=== PATIENT | female | born 1985 | race Caucasian/White ===

== ENCOUNTER → 2016-12-25 | Outpatient (CLI) | payer BC, OTHER ==
[~2016-12-25] MED LIST: B-COTAB18 PO; BUPR100T8 PO; CETI10TA84 PO; CHOL20009 PO; HYDR25TA4 PO; LEVO25TA PO; OMEP40CA41 PO; OXYC1TAB3 PO
== END | disposition home or self-care (01) ==
LOC: C.RDSM 13:21
PROVIDERS: ATTEND Orthopaedic Surgery Sports Medicine
DX: M25.531 Pain in right wrist (principal); M25.532 Pain in left wrist

== ENCOUNTER → 2017-04-16 | Day surgery (SDC) | payer OTHER, BC ==
[2017-04-08 08:31] VITALS: Ht 162.6 cm; Wt 71.4 kg
[~2017-04-16] VITALS: Ht 162.6 cm; Wt 71.4 kg
[~2017-04-16] MED LIST changes: +ATROPINE SULFATE 0.1 MG/ML 5ML SYR IV PRN; +BUPIVACAINE/EPINEPHRINE 0.5% MPF 1:200,000 30 ML VIAL ONE; +CEFAZOLIN 1000MG/55 ML D5W IV SCH; +DEXAMETHASONE SOD INJ 4 MG/ML VIAL ONE; +EpHEDrine SULFATE INJ 50 MG/ML AMP IV PRN; +FENTANYL CITRATE INJ 50 MCG/1 ML 2 ML VIAL IV PRN; +FENTANYL CITRATE INJ 50 MCG/1 ML 2 ML VIAL ONE; +FLUMAZENIL 0.1 MG/1 ML 10 ML VIAL IV PRN; +HYDROmorphone INJ 2 MG/ML SYR/VIAL IV PRN; +LABETALOL HCL IV 5 MG/ML 20ML IV PRN; +LACTATED RINGER'S 1000ML 1,000 ML IV SCH; +LIDOCAINE HCL 1% 20 ML VIAL ONE; +LIDOCAINE HCL 2% 2 ML VIAL (20MG/ML) ONE; +MEPERIDINE HCL 25 MG/ML CARP IV PRN; +MIDAZOLAM HCL 1 MG/ML 2ML VIAL ONE; +MoRPHine SULFATE 2 MG/ML CARP IV PRN; +MoRPHine SULFATE 4 MG/ML 1 ML CARP\\VIAL IV PRN; +NALOXONE HCL 0.4 MG/1 ML VIAL/CARP IV PRN; +ONDANSETRON INJ 2 MG/ML 2 ML VIAL IV PRN; +ONDANSETRON INJ 2 MG/ML 2 ML VIAL ONE; -OXYC1TAB3 PO; +OXYCODONE/ACETAMINOPHEN 5-325 TAB PO PRN; +PHENYLEPHRINE 100MCG/ML 5ML SYR IV PRN; +PROPOFOL IV EMULSION 10 MG/ML 20 ML VIAL IV ONE
--- NOTE | 2017-04-16 08:04 | History & Physical Bridge - [place] ---
H&P Re-Evaluation Bridge Note: I have examined the patient, reviewed the History & Physical and in the interval since the performance of the History & Physical I have noted the following changes of clinical significance: No changes noted
--- NOTE | 2017-04-16 11:02 | Discharge Instructions-SurgCtr ---
Discharge Instructions Date of Service Apr 16, 2017. Visit Reason for Visit: Right Ulnar Nerve Subluxation Discharge Discharge Diagnosis / Problem: Status post Right Ulnar Nerve Transposition Discharge Goals Goal(s): Decrease discomfort, Improve function, Increase independence Activity Recommendations Activity Limitations: per Instructions/Follow-up section Lifting Limitations: until after follow-up appointment (Nothing more than cup of coffee) May Resume Sexual Activity: when tolerated Shower/Bathe: may shower/bathe in 3 days Driving or Machine Use: Not while on narcotics or while wearing sling Anesthesia . Post Anesthesia Instructions: If you have had General Anesthesia or IV Sedation: * Do not drive today. * Resume driving when surgeon permits. * Do not make important decisions or sign legal documents today. * Call surgeon for: 1. Temperature elevations greater than 101 degrees F. 2. Uncontrollable pain. 3. Excessive bleeding. 4. Persistent nausea and vomiting. 5. Medication intolerance (nausea, vomiting or rash). * For nausea and vomiting use only clear liquids such as: tea, soda, bouillon until nausea subsides, then gradually increase diet as tolerated. * If you have any concerns or questions, call your surgeon's office. If physician is unavailable and it is an emergency, call 911 or go to the nearest emergency room. . Instructions / Follow-Up Instructions / Follow-Up Dr. Coreas in 10-15 days. PT in 3 days. Diet Recommendations Home Diet: resume previous diet Procedures Procedures Performed: Right Ulnar Nerve Transposition Pending Studies Studies pending at discharge: no Work Instructions Return To Work: 1 week (Within) Medical Emergencies . Who to Call and When: Medical Emergencies: If at any time you feel your situation is an emergency, please call 911 immediately. . Non-Emergent Contact Non-Emergency issues call your: Surgeon Call Non-Emergent contact if: temperature is above 101.5, your pain is not controlled, wound has increased drainage, wound has increased redness . . "Provider Documentation" section prepared by Prasanna Coreas. .
--- NOTE | 2017-04-16 11:03 | [facility] Post Operative Brief Note ---
Immediate Operative Summary Operative Date Apr 16, 2017. Pre-Operative Diagnosis Right Ulnar Nerve Subluxation Post-Operative Diagnosis Same Procedure(s) Performed Right Ulnar Nerve Transposition Surgeon Dr. Jose Coreas Program Strategist Surgeon(s) Dr. Reggie Valdovinos & Florentin Mejia PA-C Estimated Blood Loss 15 cc Findings As above Fluids (cc crystalloids) 1000 Specimens None Drains n/a Anesthesia LMA Complication(s) None Disposition Recovery Room / PACU (Stable)
--- NOTE | 2017-04-16 11:04 | [facility] Operative Report ---
Operative Report Operative Date Apr 16, 2017. Pre-Operative Diagnosis Right Ulnar Nerve Subluxation Post-Operative Diagnosis Same Procedure(s) Performed Right Ulnar Nerve Transposition Surgeon Dr. Jose Coreas Rug Dyer Surgeon(s) Dr. Reggie Valdovinos & Florentin Mejia PA-C Estimated Blood Loss 15 cc Findings Right Ulnar Nerve was scarred in but subluxed over the medial epicondyle. Fluids (cc crystalloids) 1000 Specimens None Drains n/a Anesthesia LMA Complication(s) None Disposition Recovery Room / PACU Implants n/a Indications The patient is a 32 year old female with long standing right ulnar nerve symptoms, with subluxation of the nerve, that has failed conservative treatment. The patient understands the risks of surgery, which include but are not limited to: bleeding, infection, re-operation, damage to nerves and arteries , continued pain and DVT. The patient understands all of these instructions and explanations, all of their questions have been satisfactorily addressed. The patient has elected to proceed with surgery and the informed consent was signed. Description of Procedure The patient was taken to the Operating Room and placed in the supine position on the operating table. After general anesthetic was administered a multidisciplinary time-out was performed identifying my initials on the right upper limb as the correct and operative limb. Prior to the incision being made , 1 gram of intravenous Ancef was given. The right arm was prepped and draped in the standard orthopaedic sterile fashion. The planned incision and the patients medial epicondyle were marked. The incision was injected with a 50:50 mixture of 1% Lidocaine plain and 0.5% Marcaine for a total of 10 cc. The limb was exsanguinated with an Esmarch and a tourniquet was inflated to 250 mmHg. The incision was carried down to the fascia. The medial antebrachial cutaneous nerve and its branches near the medial epicondyles were identified and protected throughout the case. The ulnar nerve was palpated in the cubital tunnel, it was initially exposed proximally and carefully dissected free distally , preserving any motor branches off the ulnar nerve. There was scarring in the cubital tunnel. A small portion of the intermuscular septum was excised. The Ulnar nerve was sufficiently freed to allow anterior transposition and a draw bridge type flap was created and the flaps were closed over the transposed nerve with 2-0 Vicryl. There was no tension on the nerve with full range of motion of the elbow. The wound was copiously irrigated. The cubital tunnel was closed with 2-0 Vicryl. The subcutaneous layer was closed with 3-0 Vicryl. The skin was closed with 4-0 Monocryl in a running subcuticular fashion and covered with Dermabond. Once the Dermabond had dried, the incision was covered with Steri strips, 4x4's, ABD, sterile cast padding , and an JORGE LUIS. A sling was placed for comfort. The sponge and needle counts were correct. POST-OP INSTRUCTIONS: Pain medicine prescription was given pre-operatively to be taken as needed. Sling for comfort. No heavy lifting. The patient will follow up with me in 10- 15 days. in the recovery room, her motor to her median, radial, ulnar, AIN, PIN were intact. She had normal sensation of all her digits and brisk cap refill. I attest to the content of the Intraoperative Record and any orders documented therein. Any exceptions are noted below.
--- NOTE | 2017-04-16 11:53 | [facility] Operative Report ---
Operative Report Operative Date Apr 16, 2017. Pre-Operative Diagnosis Right Ulnar Nerve Subluxation Post-Operative Diagnosis Same Procedure(s) Performed Right Ulnar Nerve Transposition Surgeon Dr. Jose Coreas Title Camera Operator Surgeon(s) Dr. Reggie Valdovinos & Florentin Mejia PA-C Estimated Blood Loss 15 cc Findings same Fluids (cc crystalloids) 1000 Specimens None Drains none Anesthesia general Complication(s) None Disposition Recovery Room / PACU Implants none Indications continued right upper extremity numbness, EMG performed, surgery recommended, consents signed. Description of Procedure taken to the OR, prepped and draped, I was present the entire case, please see Dr. Coreas's op note for further detail. I attest to the content of the Intraoperative Record and any orders documented therein. Any exceptions are noted below.
--- NOTE | 2017-04-16 12:46 | Anesthesia Progress Nt - [facility] ---
Anesthesia Post Op Note Date & Time Apr 16, 2017 at 12:45 Vital Signs Pain Intensity: 0 Vital Signs Past 12 Hours Date Time Temp Pulse Resp B/P (MAP) Pulse Ox O2 Delivery O2 Flow Rate FiO2 04/16/17 12:36 86 16 98 04/16/17 12:36 87 16 04/16/17 12:35 117/79 04/16/17 12:33 36.9 82 14 117/79 99 Room Air 04/16/17 12:31 95 21 04/16/17 12:31 95 21 94 04/16/17 12:30 112/77 04/16/17 12:26 86 19 04/16/17 12:26 86 19 98 04/16/17 12:25 119/72 04/16/17 12:21 85 19 04/16/17 12:21 85 19 97 04/16/17 12:20 109/72 04/16/17 12:16 84 19 04/16/17 12:16 85 19 97 04/16/17 12:15 107/76 04/16/17 12:11 88 16 98 04/16/17 12:11 88 16 04/16/17 12:10 110/67 04/16/17 12:06 99 19 97 04/16/17 12:06 101 19 04/16/17 12:05 110/69 04/16/17 12:01 95 16 100 04/16/17 12:01 95 16 04/16/17 12:00 110/70 04/16/17 11:56 88 16 99 04/16/17 11:56 88 16 04/16/17 11:55 119/61 04/16/17 11:51 102 13 04/16/17 11:51 103 13 97/67 97 04/16/17 11:46 91 20 04/16/17 11:46 90 20 98 04/16/17 11:45 111/68 04/16/17 11:42 80/51 04/16/17 11:42 102/74 04/16/17 11:41 36.4 105 20 102/74 97 Mask 6 04/16/17 11:41 104 04/16/17 11:41 104 100 04/16/17 07:20 37 91 16 136/88 (104) 100 Room Air Notes Mental Status: alert / awake / arousable, participated in evaluation Pt Amnestic to Procedure: Yes Nausea / Vomiting: adequately controlled Pain: adequately controlled Airway Patency, RR, SpO2: stable & adequate BP & HR: stable & adequate Hydration State: stable & adequate Anesthetic Complications: no major complications apparent
[2017-04-16 12:52] VITALS: TEMP 37.2
[2017-04-16 13:20] VITALS: BP 115/78; PULSE 84; O2SAT 99
== END | disposition home or self-care (01) ==
LOC: X.SURG 06:55
PROVIDERS: ATTEND Orthopaedic Surgery Sports Medicine
DX: S53.131A Medial subluxation of right ulnohumeral joint, initial encounter (principal); R20.2 Paresthesia of skin; Z90.710 Acquired absence of both cervix and uterus; Z90.89 Acquired absence of other organs; K21.9 Gastro-esophageal reflux disease without esophagitis; Z82.49 Family history of ischemic heart disease and other diseases of the circulatory system; Z80.6 Family history of leukemia; Z87.891 Personal history of nicotine dependence; X58.XXXA Exposure to other specified factors, initial encounter; I10 Essential (primary) hypertension; E03.9 Hypothyroidism, unspecified; F41.9 Anxiety disorder, unspecified; F32.9 Major depressive disorder, single episode, unspecified; G25.0 Essential tremor

== ENCOUNTER 2017-06-27 00:13 | Emergency (ER) | payer BC, OTHER ==
[~2017-06-27] VITALS: Ht 162.6 cm; Wt 75.0 kg
[~2017-06-27 00:13] MED LIST changes: -ATROPINE SULFATE 0.1 MG/ML 5ML SYR IV PRN; -BUPIVACAINE/EPINEPHRINE 0.5% MPF 1:200,000 30 ML VIAL ONE; -CEFAZOLIN 1000MG/55 ML D5W IV SCH; -DEXAMETHASONE SOD INJ 4 MG/ML VIAL ONE; -EpHEDrine SULFATE INJ 50 MG/ML AMP IV PRN; -FENTANYL CITRATE INJ 50 MCG/1 ML 2 ML VIAL IV PRN; -FENTANYL CITRATE INJ 50 MCG/1 ML 2 ML VIAL ONE; -FLUMAZENIL 0.1 MG/1 ML 10 ML VIAL IV PRN; -HYDROmorphone INJ 2 MG/ML SYR/VIAL IV PRN; -LABETALOL HCL IV 5 MG/ML 20ML IV PRN; -LACTATED RINGER'S 1000ML 1,000 ML IV SCH; -LIDOCAINE HCL 1% 20 ML VIAL ONE; -LIDOCAINE HCL 2% 2 ML VIAL (20MG/ML) ONE; -MEPERIDINE HCL 25 MG/ML CARP IV PRN; -MIDAZOLAM HCL 1 MG/ML 2ML VIAL ONE; -MoRPHine SULFATE 2 MG/ML CARP IV PRN; -MoRPHine SULFATE 4 MG/ML 1 ML CARP\\VIAL IV PRN; -NALOXONE HCL 0.4 MG/1 ML VIAL/CARP IV PRN; -ONDANSETRON INJ 2 MG/ML 2 ML VIAL IV PRN; -ONDANSETRON INJ 2 MG/ML 2 ML VIAL ONE; -OXYCODONE/ACETAMINOPHEN 5-325 TAB PO PRN; -PHENYLEPHRINE 100MCG/ML 5ML SYR IV PRN; -PROPOFOL IV EMULSION 10 MG/ML 20 ML VIAL IV ONE
[2017-06-27 00:25] VITALS: TEMP 36.7; Ht 162.6 cm; Wt 75.0 kg
[2017-06-27] MEDS ORDERED: IBUPROFEN 200 MG TAB PO STA (00:37)
--- NOTE | 2017-06-27 00:40 | EMERGENCY ROOM VISIT NOTE ---
History Report prepared by Harshibkaleb: Rosalia Prajapati Under the Supervision of: Dr. Srinath Camacho M.D. First contact with patient: 00:28 Chief Complaint: FINGER PAIN Stated Complaint: POSSIBLE BROKEN FINGER History of Present Illness The patient is a 32 year old female who presents to the Emergency Room with complaints of an episode of a finger injury occurring 2 hours ago. The patient states her left middle finger got caught on her dogs collar and pulled her finger backward. She states that her finger feels stiff. She denies any other injury. The patient has a history of a hysterectomy. Source of History: patient Onset: 2 hours ago Position: finger(s) Quality: other (injury) Timing: other (episode) Modifying Factors (Relieving): other (none) Review of Systems See HPI for pertinent positives & negatives. A total of 6 systems reviewed and were otherwise negative. Past Medical & Surgical Surgical Problems: (1) H/O: hysterectomy Old medical records were reviewed. Nurse's notes were reviewed and I agree with. Family History Patient reports no known family medical history. Social History Smoking Status: Current Every Day Smoker Marital Status: Housing Status: lives with significant other Current/Historical Medications Scheduled Bupropion (Wellbutrin Sr), 100 MG PO QAM Cetirizine (Zyrtec), 10 MG PO QAM Hydrochlorothiazide (Hctz), 25 MG PO QAM Levothyroxine Sodium (Synthroid), 25 MCG PO QAM Omeprazole (Prilosec), 40 MG PO BID Scheduled PRN Oxycodone Immediate Rel Tab (Roxicodone Ir), 1 TAB PO Q4H PRN for Severe Pain Allergies Coded Allergies: No Known Allergies (Unverified , 06/27/17) Physical Exam Vital Signs Date Time Temp Pulse Resp B/P (MAP) Pulse Ox O2 Delivery O2 Flow Rate FiO2 06/27/17 00:25 36.7 79 18 136/83 100 Room Air Physical Exam General: Non-ill appearing female in no acute distress. HEENT: Normal cephalic atraumatic. Pupils are equal round and reactive to light. Extraocular movements are intact. Oropharynx is pink with moist mucous membranes. No swelling of the mouth lips or tongue. Neck: Supple with a midline trachea. No meningeal signs or stiffness, no JVD or bruits. No Stridor. Chest: Clear to auscultation bilaterally. No wheezes or rhonchi. No increased work of breathing. Heart: regular rate and rhythm. Abdomen: Soft nontender, nondistended without rebound guarding or rigidity. Extremities: Bruise and tenderness on left middle fingertip, pain with flexion and extension and mild weakness in both directions, finger appears in normal position. Spine/Back. Non tender to palpation. No CVA tenderness Skin: Good turgor without rashes. Neurologic exam: Cranial nerves two through 12 are intact. Motor and sensation are intact and symmetrical throughout.young Medical Decision & Procedures ER Provider Diagnostic Interpretation: Radiology results as stated below per my review and radiologist interpretation: Two View Finger X-ray: Fracture of distal phalanx above the joint, suspect for underlying bony abnormality/cyst Medications Administered Medications (Trade) Dose Ordered Sig/Fuentes Route Start Time Stop Time Status Last Admin Dose Admin Ibuprofen (Advil Tab) 400 mg NOW STAT PO 06/27/17 00:37 06/27/17 00:39 DC 06/27/17 00:47 400 MG ED Course 0029: Past medical records reviewed. The patient was evaluated in room C3, and a complete history and physical examination were performed. 0037: Ordered Ibuprofen 400 mg PO. 0058: I updated the patient on her x-ray results. Medical Decision Differential diagnoses: fracture, tendon injury, contusion. This patient comes in as described above. She injured her left middle finger at the tip is bruised and swollen. There is no definite neurologic deficit. She seems weak in both flexion and extension. There is nothing that appears to be displaced. There is no nailbed injury and the nail is intact. X-rays do show a transverse fracture at the mid distal phalanx with minimal displacement. It looks like there is underlying bony abnormalities likely a cyst and I think this is therefore somewhat of a pathological fracture. I have splinted her in a neutral finger splint. She is to rest, ice, and elevate. Use ibuprofen for pain . For breakthrough pain she can use OxyIR and was given a small prescription she was warned that this could make her drowsy do not take before drinking, driving, working. She is encouraged to follow with Dr. Coreas this week for recheck and further evaluation and to rule out further injuries such as tendon injury. She was happy with the plan and discharged home. [place] Drug Monitoring Program Search Results: patient reviewed within database, no issues identified Blood Pressure Screening Patient's blood pressure: Elevated blood pressure Blood pressure disposition: Elevated BP felt to be situational Impression Primary Impression: Finger fracture, left Additional Impression: Pathological fracture Scribe Attestation The scribe's documentation has been prepared under my direction and personally reviewed by me in its entirety. I confirm that the note above accurately reflects all work, treatment, procedures, and medical decision making performed by me. Departure Information Dispostion Home / Self-Care Prescriptions Oxycodone Immediate Rel Tab (ROXICODONE IR) 5 Mg Tab 1 TAB PO Q4H Y for Severe Pain, #10 TAB Prov: Srinath Camacho M.D. 06/27/17 Referrals Cande Anderson (PCP) Forms HOME CARE DOCUMENTATION FORM, IMPORTANT VISIT INFORMATION, WORK / SCHOOL INSTRUCTIONS Patient Instructions My [facility] Additional Instructions Rest. Ice intermittently. Use neutral finger splint Use ibuprofen 400 mg every 6 hours, take with food. For more severe pain may use OxyIR 5 mg, one pill every 4-6 hours as needed OxyIR may make you drowsy do not take before drinking, driving, working Return if: Increasing pain, worsening symptoms, numbness weakness, any new problems or concerns Follow up with Dr. Coreas this week for recheck Problem Qualifiers
[2017-06-27] MEDS ORDERED: OXYC1TAB3 PO (01:08)
[2017-06-27] MEDS ORDERED: OXYCODONE IR HOME PACK PO ONE (01:15)
[2017-06-27 01:23] VITALS: BP 138/93; PULSE 75; O2SAT 100
--- NOTE | 2017-06-27 08:05 | DIAGNOSTIC IMAGING REPORT ---
LEFT MIDDLE FINGER 3 VIEWS HISTORY: left middle finger distal injury COMPARISON: None. FINDINGS: Transverse fracture through the mid aspect of the distal phalanx of the middle finger. There is associated 5 mm lucency at this location consistent with an enchondroma. Therefore, this is consistent with a pathologic fracture. Soft tissue swelling within the distal middle finger. No dislocation. No radiopaque foreign bodies. IMPRESSION: Transverse pathologic nondisplaced fracture within the distal phalanx as described above. Electronically signed by: Wei Richards M.D. 06/27/2017 8:04 AM Dictated Date/Time: 06/27/2017 8:03 AM
== END 2017-06-27 01:23 | disposition home or self-care (01) ==
LOC: C.EDB 00:14 → C.EDC 01:23
DX: S62.633A Displaced fracture of distal phalanx of left middle finger, initial encounter for closed fracture (principal); W23.0XXA Caught, crushed, jammed, or pinched between moving objects, initial encounter; F17.200 Nicotine dependence, unspecified, uncomplicated; Z90.710 Acquired absence of both cervix and uterus

== ENCOUNTER → 2017-07-14 | Outpatient (CLI) | payer BC ==
[~2017-07-14] MED LIST changes: -B-COTAB18 PO; -CHOL20009 PO; +OXYC1TAB3 PO
== END | disposition home or self-care (01) ==
LOC: C.RDSM 12:35
PROVIDERS: ATTEND Orthopaedic Surgery Sports Medicine
DX: Z09 Encounter for follow-up examination after completed treatment for conditions other than malignant neoplasm (principal)

== ENCOUNTER → 2017-07-28 | Outpatient (CLI) | payer BC ==
[~2017-07-28] MED LIST changes: +OXYC-737 PO; -OXYC1TAB3 PO
== END | disposition home or self-care (01) ==
LOC: C.RDSM 15:45
PROVIDERS: ATTEND Orthopaedic Surgery Sports Medicine
DX: Z09 Encounter for follow-up examination after completed treatment for conditions other than malignant neoplasm (principal); M79.645 Pain in left finger(s)

== ENCOUNTER → 2017-08-19 | Outpatient (CLI) | payer BC ==
[~2017-08-19] MED LIST changes: -OXYC-737 PO; +OXYC1TAB3 PO
== END | disposition home or self-care (01) ==
LOC: C.RDSM 12:48
PROVIDERS: ATTEND Orthopaedic Surgery Sports Medicine
DX: Z09 Encounter for follow-up examination after completed treatment for conditions other than malignant neoplasm (principal)

== ENCOUNTER → 2017-10-07 | Outpatient (CLI) | payer BC ==
--- NOTE | 2017-10-07 13:45 | DIAGNOSTIC IMAGING REPORT ---
LEFT THIRD FINGER 3 VIEWS CLINICAL HISTORY: LEFT 3RD FINGER PAIN COMPARISON STUDY: Left third finger 08/19/2017. FINDINGS: There is a pin traversing the transverse fracture through the mid shaft of the distal phalanx of the left middle finger. The pin also traverses the DIP joint. The hardware appears intact. Lucency at the fracture consistent with an underlying lesion suggesting an enchondroma. Therefore, this is consistent with a pathologic fracture. No dislocation. No definite bony bridging at this time. IMPRESSION: No definite bony bridging/healing identified within the nondisplaced pathologic fracture of the distal phalanx status post pinning. Electronically signed by: Wei Richards M.D. 10/07/2017 1:44 PM Dictated Date/Time: 10/07/2017 1:35 PM
== END | disposition home or self-care (01) ==
LOC: C.RDSM 13:11
PROVIDERS: ATTEND Physician Assistant
DX: S62.663D Nondisplaced fracture of distal phalanx of left middle finger, subsequent encounter for fracture with routine healing (principal); X58.XXXD Exposure to other specified factors, subsequent encounter

== ENCOUNTER → 2017-11-03 | Outpatient (CLI) | payer BC ==
--- NOTE | 2017-11-03 16:12 | DIAGNOSTIC IMAGING REPORT ---
ULTRASOUND OF THE PELVIS CLINICAL HISTORY: Pelvic pain. Reported history of endometriosis. COMPARISON STUDY: Pelvic ultrasound dated 09/04/2015. Pelvic CT dated 07/12/2013. TECHNIQUE: Real-time, grayscale, and color flow sonography of the pelvis is performed both transabdominally and endovaginally. Images are reviewed in the transverse and longitudinal planes. FINDINGS: Uterus: The uterus is surgically absent. Ovaries: The ovaries are normal in size and morphology. The right ovary measures 2.6 x 1.5 x 1.6 cm and the left ovary measures 2.8 x 1.5 x 2.1 cm. Numerous small follicles are seen bilaterally. Normal Doppler waveforms are shown within both ovaries. Pelvis: There is no free fluid in the cul-de-sac. No concerning adnexal lesion is seen. IMPRESSION: Unremarkable sonographic assessment of the pelvis noting status post hysterectomy. Electronically signed by: Parish Mackey M.D. 11/03/2017 4:11 PM Dictated Date/Time: 11/03/2017 4:07 PM
== END | disposition home or self-care (01) ==
LOC: C.ULTR 15:14
PROVIDERS: ATTEND Nurse Practitioner Family
DX: R10.2 Pelvic and perineal pain (principal); N80.1 Endometriosis of ovary

== ENCOUNTER → 2017-11-04 | Outpatient (CLI) | payer BC | END | disposition home or self-care (01) | LOC: C.RDSM 07:59 | PROVIDERS: ATTEND Orthopaedic Surgery | DX: S62.663D Nondisplaced fracture of distal phalanx of left middle finger, subsequent encounter for fracture with routine healing (principal); Z09 Encounter for follow-up examination after completed treatment for conditions other than malignant neoplasm; X58.XXXA Exposure to other specified factors, initial encounter ==